=== PATIENT | male | born 1945 | race Caucasian/White ===

== ENCOUNTER 2019-09-05 05:18 | Inpatient (IN) ==
--- NOTE | 2019-08-01 10:09 | PAT Medication Instructions ---
Medication Instructions Date of Service August 01, 2019 Home Medications coenzyme Q10 [Co Q-10] 10 mg PO QAM fluticasone propionate 2 spray INTRANASAL QPM gabapentin 300 mg PO HS lisinopril 20 mg PO QAM metformin 500 mg PO BID multivitamin 1 tab PO QPM ascorbic acid (vitamin C) 500 mg PO QAM aspirin 81 mg PO HS azelastine 1 spray INTRANASAL QAM cholecalciferol (vitamin D3) [Vitamin D3] 1,000 unit PO QAM cyclobenzaprine 5 mg PO TID PRN doxazosin 2 mg PO HS gabapentin 200 mg PO QAM hydrocortisone 1 applic TOPICAL BID loratadine [Claritin] 10 mg PO QAM ASK your prescriber and surgeon aspirin 81 mg PO HS STOP taking 2 weeks before surgery (or as soon as possible if surgery is within 2 weeks) coenzyme Q10 [Co Q-10] 10 mg PO QAM STOP taking 24 hours before surgery hydrocortisone 1 applic TOPICAL BID DO NOT take the morning of surgery lisinopril 20 mg PO QAM metformin 500 mg PO BID ascorbic acid (vitamin C) 500 mg PO QAM cholecalciferol (vitamin D3) [Vitamin D3] 1,000 unit PO QAM cyclobenzaprine 5 mg PO TID PRN loratadine [Claritin] 10 mg PO QAM Take morning of surgery With a small sip of water, OTHERWISE NOTHING TO EAT OR DRINK AFTER MIDNIGHT: azelastine 1 spray INTRANASAL QAM gabapentin 200 mg PO QAM Take evening before surgery fluticasone propionate 2 spray INTRANASAL QPM gabapentin 300 mg PO HS metformin 500 mg PO BID multivitamin 1 tab PO QPM cyclobenzaprine 5 mg PO TID PRN (if needed) doxazosin 2 mg PO HS Other Notes If you have any questions please call us at [phone] or [phone] or [phone] or [phone]
--- NOTE | 2019-08-02 09:21 | Anesthesiology Consultation ---
Date of Service August 02, 2019 Assessment & Plan (1) Encounter for pre-operative examination: - PCP: 06/20/19: followup from [facility] ER visit for fall. No LOC but MRI brain ordered to ensure no acute findings. MRI Freddy 06/25/19 revealed no acute intracranial pathology. Global cerebral atrophy with scattered microvascular ischemic changes in the cerebral white matter, likely chronic. Patient subsequently had PCP visit: 07/21/19: Memory issue complaints- being scheduled to see neuro in the future for further evaluation. Otherwise "feeling overall better" since last visit. - Check BSG AM DOS Chart Review Chart Review: Acceptable Risk for Surgery and Patient seen in Pre Admission Testing Teaching & Discussion Pre-Anesthesia Teaching/Discussion Notes: Instructed NPO after midnight before surgery,except medications with 15 cc of water. Medication instructions provided according to the PAT guidelines. History Surgery Operation Date: 09/05/19 12:10 Proposed Procedures p Right Reverse Total Shoulder Arthroplasty - Freddy Marinelli, Height/Weight Height: 5 ft 8 in Weight: 99.9 kg Allergies Allergy/AdvReac Type Severity Reaction Status Date / Time latex Allergy Mild rash Verified 08/02/19 09:35 pollen extracts AdvReac Unknown seasonal Unverified 08/02/19 09:35 allergy symptoms Mcjeoln-Slv-Zyv Reductase AdvReac muscle pain Verified 08/02/19 09:35 Inhibitor Dust AdvReac Unknown seasonal Uncoded 08/02/19 09:35 allergy symptoms Medications Home Medications Medication Instructions Recorded Confirmed Last Taken coenzyme Q10 [Co Q-10] 10 mg PO QAM 06/15/19 08/02/19 Unknown fluticasone propionate 2 spray INTRANASAL QPM 06/15/19 08/02/19 Unknown gabapentin 300 mg PO HS 06/15/19 08/02/19 Unknown lisinopril 20 mg PO QAM 06/15/19 08/02/19 Unknown metformin 500 mg PO BID 06/15/19 08/02/19 Unknown multivitamin 1 tab PO QPM 06/15/19 08/02/19 Unknown ascorbic acid (vitamin C) 500 mg PO QAM 07/26/19 08/02/19 Unknown aspirin 81 mg PO HS 07/26/19 08/02/19 Unknown cholecalciferol (vitamin D3) 1,000 unit PO QAM 07/26/19 08/02/19 Unknown [Vitamin D3] cyclobenzaprine 5 mg PO TID PRN 07/26/19 08/02/19 Unknown doxazosin 2 mg PO HS 07/26/19 08/02/19 Unknown hydrocortisone 1 applic TOPICAL BID 07/26/19 08/02/19 Unknown loratadine [Claritin] 10 mg PO QAM 07/26/19 08/02/19 Unknown azelastine 137 mcg (0.1 %) nasal 2 sprays INTRANASAL QAM ml 08/02/19 08/02/19 Unknown spray aerosol gabapentin 100 mg capsule 100 mg PO QAM cap 08/02/19 08/02/19 Unknown Past Medical History Medical History BPH (benign prostatic hyperplasia) Chronic back pain Chronic kidney disease, stage 3 under surveillance (PCP monitoring) Degenerative disc disease Diabetes mellitus, type 2 NIDDM History of basal cell carcinoma History of squamous cell carcinoma Hypertension Obesity Osteoarthritis Sleep apnea CPAP Exercise / Class Metabolic Activity III < 4 Walking/Shop/Light housework Past Family History Family History Sister Family history of diabetes mellitus Mother Family history of diabetes mellitus Father Family history of esophageal cancer Other No family history of adverse response to anesthesia Past Surgical History Surgical History History of cataract surgery BL History of colonoscopy History of Mohs micrographic surgery for skin cancer X 2 History of tonsillectomy Past Anesthesia History No Hx of Anesthesia Complications and No Family Hx of Anesthesia Complications History of PONV No Hx of PONV and No Hx of Motion Sickness Social History Smoking Status: Never smoker Do You Dip or Chew Tobacco: No Hx Alcohol Use: Yes alcohol intake frequency: a few times a month Hx Substance Use: No substance use type: does not use Review of Systems Patient denies chest pain, shortness of breath, reflux, cough, wheezing, palpitations. Physical Exam Vital Signs VITALS BP 147/78 P 70 TEMP 98.3 SP02 98%RA RESP 16 PHYSICAL Full neck and c-spine range of motion. Full TMJ range of motion. TMD 3.5 finger breaths Mallampati Score 3 Dentition: upper/lower partials Lungs: clear throughout to auscultation Cardiac: regular rate and rhythm Spine: normal Carotid arteries: negative bruit Extremities: no edema Testing Laboratory Results 08/02/19 10:07 08/02/19 10:07 PT 10.8 Seconds (9.0-12.0) 08/02/19 10:07 INR 1.1 (0.9-1.1) 08/02/19 10:07 APTT 25.2 Seconds (21.0-31.0) 08/02/19 10:07 Hemoglobin A1c 6.0 % (4.5-5.6) H 08/02/19 10:07 Blood Type B Positive 08/02/19 10:07 Antibody Screen NEGATIVE 08/02/19 10:07 Electrocardiogram Date: 06/15/19 Findings: + NSR @ (74) Chest X-Ray Date: 06/15/19 Mild right hemidiaphragmatic elevation (scheduled for right shoulder surgery). Cardiomediastinal and hilar silhouettes are within normal limits. No pneumot horax, pleural effusion, focal airspace consolidation or overt pulmonary edema. Degenerative changes of the shoulders and spine. No acute process.
[2019-08-02 11:42] LABS: Basophils # (auto) 0.09 K/uL (0-0.2); Basophils % (auto) 1.5 %; Eosinophils # (auto) 0.36 K/uL (0-0.5); Eosinophils % (auto) 6.1 %; Hematocrit (blood only) 39.8 % (42-52); Hemoglobin 13.6 g/dL (14.0-18.0); Immature Granulocytes # (auto) 0.01 K/uL (0.00-0.02); Immature Granulocytes % (auto) 0.2 %; Lymphocytes % (auto) 27.3 %; Mean Corpuscular Hemoglobin 32.6 pg (25-34); Mean Corpuscular Hgb Conc 34.2 g/dL (32-36); Mean Corpuscular Volume 95.4 fL (80-100); Mean Platelet Volume 9.7 fL (7.4-10.4); Monocytes # (auto) 0.57 K/uL (0.11-0.59); Monocytes % (auto) 9.7 %; Neutrophils # (auto) 3.23 K/uL (1.4-6.5); Neutrophils % (auto) 55.2 %; Platelet Count 237 K/uL (130-400); RDW Standard Deviation 45.1 fL (36.4-46.3); Red Blood Count 4.17 M/uL (4.7-6.1); White Blood Count 5.86 K/uL (4.8-10.8)
[2019-08-02 11:51] LABS: BUN Creatinine Ratio 12.3 (10-20); Calcium 9.8 mg/dl (8.5-10.1); Creatinine Clr Calc Pharmacy 67.1 ml/min; Est GFR (African American) 76.5; Potassium 4.7 mmol/L (3.5-5.1)
[2019-08-02 11:53] LABS: INR 1.1 (0.9-1.1); Partial Thromboplastin Ratio 0.9; Partial Thromboplastin Time 25.2 Seconds (21.0-31.0); Prothrombin Time 10.8 Seconds (9.0-12.0)
[2019-08-02 12:28] LABS: Estimated Average Glucose 126 mg/dl
--- NOTE | 2019-09-01 08:45 | History & Physical Report ---
Date of Service September 01, 2019 Assessment & Plan (1) Rotator cuff arthropathy of right shoulder: We will proceed with a reverse right shoulder arthroplasty. Postoperatively he will be kept overnight in the hospital for postoperative medical management. He plans to use energy physical therapy upon discharge. Present on Admission?: Yes History of Present Illness Chief Complaint: Rotator cuff arthropathy of the right shoulder Primary Care Provider: Sara Nicole MD All is a pleasant 73-year-old male who fell hard onto his right shoulder about 3 months ago. He has been nonfunctional with his right shoulder. MRI and clinical examination were diagnostic for a massive rotator cuff tear. The tear involves the entire supraspinatus, infraspinatus, and subscapularis. We discussed arthroscopy versus reverse shoulder replacement in the office. I did a reverse shoulder replacement on his and she did very well with that. He was not interested in the recovery required for a rotator cuff repair. He elected to proceed with a reverse right shoulder arthroplasty. Allergies Allergy/AdvReac Type Severity Reaction Status Date / Time latex Allergy Mild rash Verified 08/02/19 09:35 pollen extracts AdvReac Unknown seasonal Unverified 08/02/19 09:35 allergy symptoms Xgnvelu-Zbg-Vaj Reductase AdvReac muscle pain Verified 08/02/19 09:35 Inhibitor Dust AdvReac Unknown seasonal Uncoded 08/02/19 09:35 allergy symptoms Home Medications Home Medications Medication Instructions Recorded Confirmed Type coenzyme Q10 [Co Q-10] 10 mg PO QAM 06/15/19 08/02/19 History fluticasone propionate 2 spray INTRANASAL QPM 06/15/19 08/02/19 History gabapentin 300 mg PO HS 06/15/19 08/02/19 History lisinopril 20 mg PO QAM 06/15/19 08/02/19 History metformin 500 mg PO BID 06/15/19 08/02/19 History multivitamin 1 tab PO QPM 06/15/19 08/02/19 History ascorbic acid (vitamin C) 500 mg PO QAM 07/26/19 08/02/19 History aspirin 81 mg PO HS 07/26/19 08/02/19 History cholecalciferol (vitamin D3) 1,000 unit PO QAM 07/26/19 08/02/19 History [Vitamin D3] cyclobenzaprine 5 mg PO TID PRN 07/26/19 08/02/19 History doxazosin 2 mg PO HS 07/26/19 08/02/19 History hydrocortisone 1 applic TOPICAL BID 07/26/19 08/02/19 History loratadine [Claritin] 10 mg PO QAM 07/26/19 08/02/19 History azelastine 137 mcg (0.1 %) nasal 2 sprays INTRANASAL QAM ml 08/02/19 08/02/19 History spray aerosol gabapentin 100 mg capsule 100 mg PO QAM cap 08/02/19 08/02/19 History Past Med/Surg History Medical History BPH (benign prostatic hyperplasia) Chronic back pain Chronic kidney disease, stage 3 under surveillance (PCP monitoring) Degenerative disc disease Diabetes mellitus, type 2 NIDDM History of basal cell carcinoma History of squamous cell carcinoma Hypertension Obesity Osteoarthritis Sleep apnea CPAP Surgical History History of cataract surgery BL History of colonoscopy History of Mohs micrographic surgery for skin cancer X 2 History of tonsillectomy Family History Sister Family history of diabetes mellitus Mother Family history of diabetes mellitus Father Family history of esophageal cancer Other No family history of adverse response to anesthesia Social History Preferred Language: Uzbek Communication Ability: Effective Snow Removal/Plowing Required: No Beliefs That Will Affect Care: None Current Living Situation: Spouse Feels Safe at Home: Yes Smoking Status: Never smoker Second Hand Exposure: No ; Hx Alcohol Use: Yes Hx Substance Use: No Review of Systems All systems reviewed & are unremarkable except as noted in HPI & below Physical Exam Constitutional: WD/WN, vitals as above Eyes: PERRL, conjunctivae normal, anicteric sclerae ENMT: external ear and nose normal, oropharynx normal Neck: trachea midline, no thyromegaly Respiratory: normal respiratory effort Cardiovascular: RRR, no murmur, no edema Gastrointestinal (Abdomen): normal bowel sounds, soft, nontender, no hepatosplenomegaly Musculoskeletal: Physical examination of the right shoulder reveals decreased range of motion and significant weakness. There is tenderness palpation along the anterior glenohumeral joint line. The right upper extremity is neurova scularly intact. Psychiatric: A+Ox3, euthymic affect Results & Data Diagnostic Findings Radiographs of the right shoulder show some signs of osteoarthritis with blunting of the greater tuberosity and some superior migration of the humeral head on the glenoid.
[2019-09-05] MEDS ORDERED: GABAPENTIN 300 MG CAP PO SCH ×2 (06:00→21:00)
[2019-09-05] MEDS ORDERED: TRANEXAMIC ACID 1,000 MG **IV Intra-op IV SCH (06:00)
[2019-09-05] MEDS ORDERED: LR 500ML BOLUS, THEN 15ML/HR IV SCH (06:00)
[2019-09-05] MEDS ORDERED: DEXAMETHASONE SOD PHOSPHATE 8 MG in SYRINGE 0 ML IV SCH (06:00)
[2019-09-05] MEDS ORDERED: FAMOTIDINE 20 MG TAB PO SCH (06:00)
[2019-09-05] MEDS ORDERED: LR 60ML/HR IV SCH (06:00)
[2019-09-05] MEDS ORDERED: ACETAMINOPHEN 500 MG TAB PO SCH (06:00)
[2019-09-05] MEDS ORDERED: ROPIVACAINE 0.5% HCL/PF 150 MG, BUPIVACAINE 0.5% MPF 30 ML, EPINEPHrine 30MG/30ML (OR U... INSTIL SCH (06:00)
[2019-09-05] MEDS ORDERED: CEFAZOLIN 2000MG 2,000 MG/15 ML SYR IV SCH (06:00)
[2019-09-05] MEDS ORDERED: TRANEXAMIC ACID 1,000 MG **IV Pre-op IV SCH (06:00)
[2019-09-05] MEDS ORDERED: BUPIVACAINE 0.5 % 5 MG/1 ML PF 10ML VIAL ONE (06:25)
--- NOTE | 2019-09-05 06:42 | History & Physical Bridge Note ---
Date of Service September 05, 2019 History & Physical Bridge Note I have examined the patient, reviewed the History & Physical and in the interval since the performance of the History & Physical I have noted the following changes of clinical significance: no changes noted
[2019-09-05] MEDS ORDERED: dexAMETHasone 4 MG TAB PO ONE (06:52)
[2019-09-05] MEDS ORDERED: PROPOFOL IV EMULSION 10 MG/ML 20 ML VIAL IV ONE (06:54)
[2019-09-05] MEDS ORDERED: fentaNYL citrate 100 MCG/2 ML VIAL ONE (06:54)
[2019-09-05] MEDS ORDERED: LIDOCAINE HCL 2% 2 ML VIAL/AMP(20MG/ML) INFIL ONE (06:54)
[2019-09-05] MEDS ORDERED: ROCURONIUM BROMIDE 10 MG/ML 5 ML VIAL ONE ×2 (06:54→08:14)
[2019-09-05] MEDS ORDERED: MIDAZOLAM HCL 1 MG/ML 2ML VIAL ONE (06:54)
[2019-09-05] MEDS ORDERED: ORTHO JOINT ANESTHETIC ONE (07:01)
[2019-09-05] MEDS ORDERED: fentaNYL citrate 100 MCG/2 ML VIAL IV PRN (07:41)
[2019-09-05] MEDS ORDERED: ePHEDrine sulfate 50 MG/ML AMP IV PRN (07:41)
[2019-09-05] MEDS ORDERED: ATROPINE SULFATE 0.1 MG/ML 10ML SYR IV PRN (07:41)
[2019-09-05] MEDS ORDERED: ONDANSETRON INJ 2 MG/ML 2 ML VIAL IV PRN ×2 (07:41→09:54)
[2019-09-05] MEDS ORDERED: PHENYLEPHRINE 100MCG/ML 5ML SYR ONE (08:13)
[2019-09-05] MEDS ORDERED: ePHEDrine sulfate 50 MG/ML AMP ONE (08:13)
[2019-09-05] MEDS ORDERED: ONDANSETRON INJ 2 MG/ML 2 ML VIAL ONE (08:13)
[2019-09-05] MEDS ORDERED: DEXAMETHASONE SOD INJ 4 MG/ML VIAL ONE (08:13)
[2019-09-05] MEDS ORDERED: GLYCOPYRROLATE 0.2 MG/ML VIAL ONE (08:37)
[2019-09-05] MEDS ORDERED: NEOSTIGMINE METHYLSULFATE 5 MG/5 ML SYR ONE (08:37)
--- NOTE | 2019-09-05 08:41 | Operative Report ---
PG Post Operative Report Pre & Post Diagnosis Operation Date: 09/05/19 07:15 Pre-Op Diagnosis: Rotator cuff arthropathy of the right shoulder Post-Op Diagnosis: Rotator cuff arthropathy of the right shoulder I identified the patient and participated in the time-out.: Yes Procedure Operation Date: 09/05/19 07:15 Actual Procedures p Right Reverse Total Shoulder Arthroplasty(Right) - Freddy Marinelli DO Surgeon Freddy Marinelli DO Senior Agricultural Assistant Freddy Monsalve PAC Estimated Blood Loss 250 Findings Consistent with Post-Op Diagnosis Specimens Right humeral head Complications none Disposition Disposition: Recovery Room Indications All is a pleasant 73-year-old male who fell hard sustaining a massive right rotator cuff tear. MRI and clinical examination showed parts of the rotator cuff are unrepairable. After failing extensive conservative treatment, he elected proceed with a reverse right shoulder arthroplasty. Description of Procedure Implants used: I used a [employer] Comprehensive reverse total shoulder arthroplasty system with a size 11 press fit mini humeral stem, a standard humeral tray and a standard humeral bearing, a 25 mm mini baseplate with a 6.5 mm central screw and superior and inferior locking screws, and a size 36 mm eccentric glenosphere. The patient arrived at [facility] for the above procedure. There were seen in the preoperative holding area and the operative extremity was identified and signed. They were given a preoperative antibiotic and an interscalene nerve block. They were taken back to the operating room, laid on table in supine position, and put under general anesthesia. They were then put into the beachchair position. The shoulder was then prepped and draped in sterile fashion. A timeout was done and the patient and the operative extremity was properly identified. A deltopectoral approach was used. Dissection was taken down through the fascia and the deltoid was retracted laterally and the conjoined tendon was retracted m edially. The anterior shoulder was exposed. The long head of the biceps tendon was tenodesed to the upper border of the pectoralis major. The subscapularis was then released off the lesser tuberosity with a centimeter of cuff tissue remaining. The inferior capsule was released and the humeral head was dislocated. A canal finding reamer was sent down the center of the humeral canal. Sequenti al reaming up to a size 11 reamer was done. Off that reamer, a proximal humeral resection guide was placed. The proximal humerus was resected at 135 of inclination and 25 of retroversion. Osteophytes were then removed and the glenoid was exposed. Time was spent doing a complete capsular and labral release. The glenoid guide was then placed in the inferior aspect of the glenoid. A 3.2 mm Steinmann pin was then placed into the glenoid vault at 10 of inclination. The glenoid baseplate was then reamed. The final size 25 mm mini baseplate was then impacted in the place. A 6.5 mm central screw was then placed followed by superior and inferior locking screws. A 36 mm eccentric glenoid sphere was then impacted into place. Surrounding soft tissues were then injected with 100 cc an orthopedic pain control cocktail. The proximal humerus was then exposed. Sequential broaching of the humerus up to a size 11 broach was done. Off that broach a standard humeral tray was trialed. The shoulder was then reduced, brought through a full range of motion and felt to be stable. The shoulder was then dislocated and the broach was removed. The final size 11 mini press-fit humeral stem was then impacted into place. A standard humeral bearing was then snapped onto a standard humeral tray and the ring-lock mechanism was engaged. The humeral tray was then impacted onto the humeral stem. The shoulder was once again reduced, brought through a full range of motion and felt to be stable. The subscapularis was then tenodesed back to the lesser tuberosity with transosseous FiberWire sutures and side to side sutures with the arm in 45 of external rotation. A dilute betadyne lavage was then done for 3 minutes. The joint was then irrigated with normal saline solution. Hemostasis was obtained. The skin was then closed with 2-0 Vicryl, 3-0V lock suture, and ramsey. A soft dressing and a regular arm sling was placed. The patient was then extubated and transferred to a hospital bed. They were taken to the postanesthesia care unit in stable condition. They tolerated the procedure well. I attest to the content of the Intraoperative Record and any orders documented therein. Any exceptions are noted below.
--- NOTE | 2019-09-05 09:34 | Anesthesiology Progress Note ---
Date of Service September 05, 2019 Anesthesia Post Procedure Vital Signs Vital Signs: Temp Pulse Pulse Resp BP BP Pulse Ox 09/05/19 09:25 72 16 128/54 L 97 09/05/19 09:15 74 16 119/49 L 96 09/05/19 09:05 79 16 115/55 L 96 09/05/19 08:58 36.2 C L 85 16 101/49 L 95 09/05/19 05:58 36.7 C 76 20 151/67 H 98 Pain Intensity Other: Pain Intensity: 4 Right Shoulder: Pain Intensity: 4 Transfer of Care Handoff Completed per policy Notes Mental Status: alert / awake / arousable and participated in evaluation Patient Amnestic to Procedure: Yes Nausea / Vomiting: adequately controlled Pain: adequately controlled Airway Patency, RR, SpO2: stable & adequate BP & HR: stable & adequate Hydration State: stable & adequate Anesthetic Complications: no major complications apparent and Pt Satisfied with anesthetic care
--- NOTE | 2019-09-05 09:36 | XRay Report ---
XR shoulder RT min 2V routine CLINICAL HISTORY: Post shoulder surgery postoperative evaluation COMPARISON: None. DISCUSSION: Anatomic alignment posttotal right shoulder arthroplasty. Could contact between prostheti c and underlying bone. Expected postoperative soft tissue change IMPRESSION: Anatomic alignment posttotal right shoulder arthroplasty. ACT 112: Negative or not required by law. The above report was generated using voice recognition software. It may contain grammatical, syntax or spelling errors. Electronically signed by: Cuba Hurtado M.D. 09/05/2019 9:35 AM
[2019-09-05] MEDS ORDERED: NALOXONE HCL 0.4 MG/1 ML VIAL/CARP IV PRN (09:54)
[2019-09-05] MEDS ORDERED: bisacodyL 10 MG SUPP PR PRN (09:54)
[2019-09-05] MEDS ORDERED: METOCLOPRAMIDE HCL INJ 5 MG/ML 2 ML VIAL IV PRN (09:54)
[2019-09-05] MEDS ORDERED: HYDROmorphone INJ 0.5 MG/0.5 ML SYR IV PRN (09:54)
[2019-09-05] MEDS ORDERED: MAGNESIUM HYDROXIDE SUSP 30 ML UDC PO PRN (09:54)
[2019-09-05] MEDS ORDERED: OXYCODONE HCL IR 5 MG TAB (IMMEDIATE RELEASE) PO PRN (09:54)
[2019-09-05] MEDS: SODIUM CHLORIDE 0.9% 1000ML 1,000 ML IV SCH ×2 (10:24→20:18)
--- NOTE | 2019-09-05 10:26 | Pharmacy Report ---
Glycemic Control Consultation - Date of Service September 05, 2019 - Scope Scope: Glycemic Pharmacist consulted by Freddy Monsalve PA-C on 09/05/19 for glycemic control and to write orders per [facility] inpatient glycemic control protocol - Objective Weight: 104.598 kg Accuchecks BSG (last 24hrs): 09/05/19 09/05/19 05:44 09:14 POC Glucose 118 H 164 H HbA1c: Hemoglobin A1c 6.0 % (4.5-5.6) H 08/02/19 10:07 - Recent Pertinent Medications Outpatient Anti-diabetic Regimen: * metformin 500 PO BID Risk Factors for Insulin Resistance: * Steroids: dexamethasone 8 mg PO preop + dexamethasone 4 mg IV intraoperative + dexamethasone 4 mg topically intraoperatively * Recent Surgery: POD 0 for shoulder surgery * Diet:T2DM - Assessment & Plan Assessment & Plan: ASSESSMENT: * Mr Son is a 73 y/o M with a PMH of well controlled T2DM on 1 oral medication who presents for shoulder surgery. He received significant steroids. He will receive steroids tomorrow morning as well. * Since patient received dexamethasone, will give 0.4 units/kg of Lantus now (this also aligns with a full weight-based stress of 2 Lantus). Utilize weight-based stress of 3 Novolog ... will not order additional Lantus this evening since want a bolus heavy regimen. * Pt is maintained on oral antidiabetic agents as an outpatient * Oral agents are not recommended for inpatient use d/t drug interactions, changing PO intake, and difficulty titrating for acute hyper/hypoglycemia. ADA recommends re-initiating outpatient oral agents 1-2 days prior to discharge if/when appropriate if they were held on admission. * Will hold oral agents for admission and utilize SQ basal bolus insulin regimen which is the recommended regimen for inpatient glycemic control. * Will initiate weight based insulin dosing for insulin audelia patient and titrate based on BSG trends. PLAN FOR INPATIENT GLYCEMIC CONTROL: * Holding outpatient oral diabetes medications- plan to restart on POD 2. * Basal insulin * Lantus 35 units SQ x 1 * Bolus insulin * NovoLog per scale ACHS or Q6hrs while NPO * Goal Range: Low 110 mg/dL - High 140 mg/dL * Correction Factor: 15 mg/dL/unit * Nutritional / Prandial insulin per carb ratio of 1 unit per 5 grams CHO consumed Recommendations for Home Regimen * Patient's HbA1C well controlled recommend continuing home regimen. Thank you.
[2019-09-05] MEDS ORDERED: PHARMACY GLYCEMIC MGMT CONSULT PRN (10:37)
[2019-09-05] MEDS ORDERED: INSULIN GLARGINE SOLOSTAR 100 UNITS/ML 3 ML PEN SC ONE (11:00)
[2019-09-05] MEDS: HYDROCORTISONE 2.5% CR 30 GM TUBE EXT SCH ×2 (11:25→20:24)
[2019-09-05] MEDS: MULTIVITAMIN TAB PO SCH (11:25)
[2019-09-05] MEDS: GABAPENTIN 100 MG CAP PO SCH (11:26)
[2019-09-05] MEDS: DOCUSATE SODIUM 100 MG CAP PO SCH ×2 (11:28→20:25)
[2019-09-05] MEDS: LORATADINE 10 MG TAB PO SCH (11:28)
[2019-09-05] MEDS: lisinopriL 20 MG TAB PO SCH (11:28)
[2019-09-05] MEDS: INSULIN ASPART 100 UNITS/ML 3 ML PEN SC SCH ×3 (11:30→21:26)
[2019-09-05] MEDS: KETOROLAC TROMETHAMINE 15 MG/ML VIAL IV SCH ×3 (11:31→23:56)
--- NOTE | 2019-09-05 11:50 | Consultation ---
Date of Consultation September 05, 2019 Assessment & Plan (1) Status post reverse total arthroplasty of right shoulder: Post op day# 0 S/P Right reverse total shoulder arthroplasty by Dr Marinelli Post op doing well -pain management per ortho -wound management per ortho -PT/OT as appropriate -DVT prophylaxis per ortho -incentive spirometry -monitor H&H for acute blood loss anemia; Pre-op Hgb: 13.6 (2) Diabetes mellitus, type 2: A1c: 6.0 on 08/02/19 -Hold metformin -Glycemic Pharmacy on board, appreciate recommendations (3) Hypertension: -Continue lisinopril (4) Chronic kidney disease, stage 3: Baseline Cr: ~1.1 -Monitor renal functions -Avoid nephrotoxic agents when possible (5) Sleep apnea: -CPAP HS (6) BPH (benign prostatic hyperplasia): -Continue doxazosin (7) Dyslipidemia: -Intolerant to statins DVT Prophylaxis: -SCDs per ortho Follows with Dr Nicole for routine care Pt was seen and care coordinated with Dr Duenas. See addendum Thank you for this consultation. We will follow the patient with you during their hospital stay. You can reach a member of the [facility] Hospitalist Team 30/03 via pager @ [phone]. 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 Post op pt reports doing well. Denies any current pain. Reports some paresthesias to right arm and fingers. Has not yet urinated after procedure. Reports ate toast and drinking water without nausea or vomiting. Reports throat feels a little sore. Denies choking or difficulty swallowing. Denies chills, diaphoresis, diarrhea, constipation, ROD, dizziness, syncope, vision changes, neck pain, CP, SOB, orthopnea, palpitations, cough, rhinorrhea, abdominal pain, extremity edema, rashes, urinary symptoms. Allergies Allergy/AdvReac Type Severity Reaction Status Date / Time latex Allergy Mild rash Verified 09/05/19 06:15 Kzjlwia-Xgf-Bmj Reductase AdvReac Intermediate muscle pain Verified 09/05/19 06:15 Inhibitor pollen extracts AdvReac Mild seasonal Verified 09/05/19 06:15 allergy symptoms Dust AdvReac Mild seasonal Uncoded 09/05/19 06:15 allergy symptoms Home Medications Home Medications Medication Instructions Recorded Confirmed Type coenzyme Q10 [Co Q-10] 10 mg PO QAM 06/15/19 09/05/19 History fluticasone propionate 2 spray INTRANASAL QPM 06/15/19 09/05/19 History gabapentin 300 mg PO HS 06/15/19 09/05/19 History lisinopril 20 mg PO QAM 06/15/19 09/05/19 History metformin 500 mg PO BID 06/15/19 09/05/19 History multivitamin 1 tab PO QPM 06/15/19 09/05/19 History ascorbic acid (vitamin C) 500 mg PO QAM 07/26/19 09/05/19 History aspirin 81 mg PO HS 07/26/19 09/05/19 History cholecalciferol (vitamin D3) 1,000 unit PO QAM 07/26/19 09/05/19 History [Vitamin D3] cyclobenzaprine 5 mg PO TID PRN 07/26/19 09/05/19 History doxazosin 2 mg PO HS 07/26/19 09/05/19 History hydrocortisone 1 applic TOPICAL BID 07/26/19 09/05/19 History loratadine [Claritin] 10 mg PO QAM 07/26/19 09/05/19 History azelastine 137 mcg (0.1 %) nasal 2 sprays INTRANASAL QAM ml 08/02/19 09/05/19 History spray aerosol gabapentin 100 mg capsule 100 mg PO QAM cap 08/02/19 09/05/19 History Tylenol Extra Strength 2 tab PO TID PRN 09/05/19 09/05/19 History Patient History Medical History (Updated 09/05/19 @ 11:54 by Julia Osuna PA-C) BPH (benign prostatic hyperplasia) Chronic back pain Chronic kidney disease, stage 3 under surveillance (PCP monitoring) Degenerative disc disease Diabetes mellitus, type 2 NIDDM Dyslipidemia History of basal cell carcinoma History of squamous cell carcinoma Hypertension Obesity Osteoarthritis Sleep apnea CPAP Surgical History (Updated 09/05/19 @ 11:54 by Julia Osuna PA-C) History of cataract surgery BL History of colonoscopy History of Mohs micrographic surgery for skin cancer X 2 History of tonsillectomy Family History Sister Family history of diabetes mellitus Mother Family history of diabetes mellitus Father Family history of esophageal cancer Other No family history of adverse response to anesthesia Social History Preferred Language: Mauritian Communication Ability: Effective Budget Report Clerk Required: No Beliefs That Will Affect Care: None Current Living Situation: Spouse Other Information That Helps Us Care for You: No Feels Safe at Home: Yes Safety Concerns: Feels Safe At This Time Smoking Status: Never smoker Do You Dip or Chew Tobacco: No ; Second Hand Exposure: No ; Hx Alcohol Use: Yes Hx Substance Use: No Review of Systems Review of Systems: All systems reviewed & are unremarkable except as noted in HPI & below Physical Exam Physical Exam: General: no distress, obese Head: normocephalic, atraumatic Eyes: PERRL, EOM's intact, conjunctiva non-injected, anicteric ENT: normal inspection external ears, nose, mucous membranes moist Neck: supple, trachea midline Lungs: clear, no respiratory distress, no wheezing/rhonchi/rales CV: RRR, no murmur, no pretibial edema Abd: normal BS, soft, non-tender Ext: RUE: arm in sling, able to flex and extend fingers, distal pulses intact. BLE without edema, distal pulses intact, no calf tenderness Neuro: A&O x 3, no focal deficits noted, normal affect Skin: warm, dry Results & Data Vital Signs (Past 12 Hours) Vital Signs Temp Pulse Pulse Resp BP BP Pulse Ox 09/05/19 11:18 36.3 C L 72 18 126/77 100 09/05/19 10:18 36.3 C L 70 18 129/76 95 09/05/19 09:45 36.5 C 75 18 130/73 95 09/05/19 09:35 69 16 121/58 L 98 09/05/19 09:25 72 16 128/54 L 97 09/05/19 09:15 74 16 119/49 L 96 09/05/19 09:05 79 16 115/55 L 96 09/05/19 08:58 36.2 C L 85 16 101/49 L 95 09/05/19 05:58 36.7 C 76 20 151/67 H 98
[2019-09-05] MEDS: ACETAMINOPHEN 500 MG TAB PO SCH ×2 (13:27→21:25)
[2019-09-05] MEDS ORDERED: INSULIN ASPART 100 UNITS/ML 3 ML PEN SC SCH (13:30)
[2019-09-05] MEDS: ASTELIN - ORDER AWAITING ACTION SCH ×2 (15:50→23:57)
[2019-09-05] MEDS: CEFAZOLIN 2000MG 2,000 MG/15 ML SYR IV SCH ×2 (15:52→23:56)
[2019-09-05] MEDS: FLUTICASONE PROPIONATE NA SPR 16 GM BTL SCH (20:26)
[2019-09-05] MEDS ORDERED: ASPIRIN 81 MG ECTAB PO SCH (21:00)
[2019-09-05] MEDS ORDERED: DOXAZosin MESYLATE TAB 2 MG TAB PO SCH (21:00)
[2019-09-05] MEDS ORDERED: SENNA 8.6 MG TAB PO SCH (21:00)
[2019-09-06] MEDS ORDERED: INSULIN ASPART 100 UNITS/ML 3 ML PEN SC SCH (02:00)
[2019-09-06 05:08] LABS: Hematocrit (blood only) 33.7 % (42-52); Hemoglobin 11.8 g/dL (14.0-18.0); Immature Granulocytes # (auto) 0.05 K/uL (0.00-0.02); Immature Granulocytes % (auto) 0.3 %; Lymphocytes # (auto) 1.03 K/uL (1.2-3.4); Lymphocytes % (auto) 6.7 %; Mean Corpuscular Hemoglobin 32.6 pg (25-34); Mean Corpuscular Volume 93.1 fL (80-100); Mean Platelet Volume 9.4 fL (7.4-10.4); Monocytes # (auto) 1.54 K/uL (0.11-0.59); Neutrophils # (auto) 12.84 K/uL (1.4-6.5); Platelet Count 174 K/uL (130-400); RDW Coefficient of Variation 12.8 % (11.5-14.5); RDW Standard Deviation 43.6 fL (36.4-46.3); Red Blood Count 3.62 M/uL (4.7-6.1); White Blood Count 15.46 K/uL (4.8-10.8)
[2019-09-06 05:34] LABS: BUN Creatinine Ratio 18.5 (10-20); Calcium 8.5 mg/dl (8.5-10.1); Creatinine Clr Calc Pharmacy 63.4 ml/min; Est GFR (African American) 69.5; Potassium 4.9 mmol/L (3.5-5.1)
[2019-09-06] MEDS: ACETAMINOPHEN 500 MG TAB PO SCH (05:42)
[2019-09-06] MEDS: KETOROLAC TROMETHAMINE 15 MG/ML VIAL IV SCH (05:42)
--- NOTE | 2019-09-06 06:02 | Orthopedic Progress Note ---
Date of Service September 06, 2019 Assessment & Plan (1) History of reverse total replacement of right shoulder joint: Overall he is doing very well. He will be seen by physical therapy this morning for ambulation and range of motion exercises. He can be discharged home later today. He will follow-up with orthopedics in 2 weeks. Present on Admission?: Yes Subjective All was seen and examined at bedside this morning. Overall is doing very well. Is not having pain in the right shoulder. He was able to get some sleep last night. He has no complaints. Physical Exam Musculoskeletal: Physical examination of the right shoulder, the dressing is clean and dry. He is wearing a sling as instructed. His radial, median, and ulnar nerves are checked and intact his wrist. His axillary nerve was not checked. He still some numbness in his thumb. Results & Data Vital Signs (Past 12 Hours) Vital Signs Temp Pulse Resp BP Pulse Ox 09/06/19 02:59 36.5 C 65 16 143/82 H 97 09/05/19 23:22 36.7 C 64 16 149/81 H 97 09/05/19 20:12 36.5 C 66 16 147/76 H 100 Laboratory Results H & H 08/02/19 09/06/19 Range/Units 10:07 04:38 Hgb 13.6 L 11.8 L (14.0-18.0) g/dL Hct 39.8 L 33.7 L (42-52) % Coagulation 08/02/19 Range/Units 10:07 INR 1.1 (0.9-1.1) Diagnostic Findings Postoperative x-rays of the right shoulder show the prosthesis to be in anatomic alignment without any evidence of fracture, dislocation, or loosening. PG Care Time/CCT Total # of Minutes Spent Total Time Spent with Patient: Total time spent is greater than 50% in coordination of care (as documented) at patient's floor/unit and/or counseling patient:
--- NOTE | 2019-09-06 06:06 | Discharge Summary ---
Date of Service September 06, 2019 Admission HPI Per Admitting Provider All is a pleasant 73-year-old male who fell hard onto his right shoulder about 3 months ago. He has been nonfunctional with his right shoulder. MRI and clinical examination were diagnostic for a massive rotator cuff tear. The tear involves the entire supraspinatus, infraspinatus, and subscapularis. We discussed arthroscopy versus reverse shoulder replacement in the office. I did a reverse shoulder replacement on his and she did very well with that. He was not interested in the recovery required for a rotator cuff repair. He elected to proceed with a reverse right shoulder arthroplasty. Principal Diagnosis Right reverse shoulder arthroplasty Discharge Data Allergies Allergy/AdvReac Type Severity Reaction Status Date / Time latex Allergy Mild rash Verified 09/05/19 06:15 Oeaakxp-Ngs-Ioa Reductase AdvReac Intermediate muscle pain Verified 09/05/19 06:15 Inhibitor pollen extracts AdvReac Mild seasonal Verified 09/05/19 06:15 allergy symptoms Dust AdvReac Mild seasonal Uncoded 09/05/19 06:15 allergy symptoms Consultations 09/05/19 09:54 Consult Case Management - Discharge Planning Routine Procedures Performed Operation Date: 09/05/19 07:15 Actual Procedures p Right Reverse Total Shoulder Arthroplasty(Right) - Freddy Marinelli DO Ordered Studies 09/05/19 05:00 US - OR guided needle placemen Routine Hospital Course (1) History of reverse total replacement of right shoulder joint: On September 05, 2019 All arrived at [facility] and underwent a right reverse shoulder arthroplasty without complication. He had a general anesthetic and a right interscalene nerve block. Postoperatively he was placed in a sling and discharged to general orthopedic floors. His hospital course was uneventful. On postop day #1 his H&H was stable and his pain was well controlled. He was able to participate well with physical therapy doing ambulation and range of motion exercises. He was then discharged home. He will follow-up with orthopedics in 2 weeks. Total Time Total Time Spent Total Time Spent (In Minutes): 20 Discharge Plan Discharge Items Reason For Visit: Right Shoulder Degenerative Joint Disease Discharge Diagnosis: Right reverse shoulder arthroplasty Activity: As commented below Non-emergency contact: Surgeon Call non-emergency contact if: your wound has increased redness and your wound has increased drainage Follow-up/Referrals: Sara Nicole MD [Primary Care Provider] - Diet: Carb Consistent or DM2 Addtl Attending Provider Instructions: Activity and Therapy Recommendations: * If you are using [facility] then therapy will be provided at your home until they feel you have accomplished all of your goals. * If you are using [facility] then Physical Therapy will be provided until they feel you are ready to start Outpatient Physical Therapy. * If you are not using home therapy then Outpatient Physical Therapy should start about 3-5 days from your day of surgery. Therapy will last about 8-12 weeks * Wear your sling for 3 weeks, unless otherwise instructed. You may remove your sling to shower and to dress, but otherwise, you should be in your sling at all times, including while sleeping * The shoulder replacement is very stable and you can use your hand while in the sling * You were shown a series of exercises in the hospital. Do these exercises daily including the exercises you were shown in physical therapy. Medications: * Narcotic You will likely be sent home from the hospital with a prescription for the narcotic pain medication that worked best throughout your stay. * Other medications may be prescribed for specific circumstances. If you have any questions, please call the office at . * Resume previous home medications unless otherwise instructed Dressing Care: Leave the plastic dressing in place for 5 days. After 5 days you may remove the plastic dressing. If the incision is not draining then you may leave the ramsey open to air. If there is a little bit of drainage or if the ramsey are getting stuck on your clothing then cover the incision with a dry dressing. The ramsey will be removed at your 2 week follow-up appointment. Showering: You may shower with the plastic dressing in place. Let the shower spray hit the other shoulder. You can pat the plastic dry. If the dressing becomes wet underneath the plastic then simply remove the dressing. Keep the incision dry until you are 5 days out from the day of surgery. At that time you can shower with the ramsey exposed. Let the soapy shower water run over the ramsey and pat them dry. Do not scrub or soak the incision. Things To Watch For: * Drainage from the incision site that occurs more than one week after your surgery. * Increased redness at the incision site. * Fever above 102 degrees Fahrenheit. * Unusual chest pain or shortness of breath. * Call [facility] at with any of the above problems Follow-Up Visit: Follow-up with Dr. Marinelli 2-3 weeks after your day of surgery. An appointment was probably scheduled when you signed-up for surgery in the office. If you have any questions call Office Instructions: More detailed instructions as well as Frequently Asked Questions were provided in a folder by our office when you signed-up for surgery. Please review these instructions when you get home. If you have any further questions or concerns, please feel free to call the office at [phone] Pending Studies at Discharge: No Stand-Alone Forms: My [facility], Smoking Cessation Medications and DC Order Prescriptions: New oxycodone 5 mg Tablet 5 - 10 mg PO Q4H PRN (Reason: pain) Qty: 30 RF: 0 Continued multivitamin Tablet 1 tab PO QPM RF: 0 lisinopril 20 mg tablet 20 mg PO QAM RF: 0 coenzyme Q10 [Co Q-10] 10 mg Capsule 10 mg PO QAM RF: 0 gabapentin 300 mg capsule 300 mg PO HS RF: 0 fluticasone propionate 50 mcg/actuation spray,suspension 2 spray intranasal QPM RF: 0 metformin 500 mg tablet extended release 24 hr 500 mg PO BID RF: 0 doxazosin 1 mg Tablet 2 mg PO HS RF: 0 aspirin 81 mg Tablet,Delayed Release (Dr/Ec) 81 mg PO HS RF: 0 ascorbic acid (vitamin C) 500 mg Tablet 500 mg PO QAM RF: 0 hydrocortisone 2.5 % Cream 1 applic TOPICAL BID RF: 0 loratadine [Claritin] 10 mg Tablet 10 mg PO QAM RF: 0 cholecalciferol (vitamin D3) [Vitamin D3] 1,000 unit Capsule 1,000 unit PO QAM RF: 0 cyclobenzaprine 5 mg Tablet 5 mg PO TID PRN (Reason: Muscle Spasm) RF: 0 gabapentin 100 mg capsule 100 mg PO QAM RF: 0 azelastine 137 mcg (0.1 %) aerosol,spray 2 sprays INTRANASAL QAM RF: 0 Tylenol Extra Strength 500 mg 2 tab PO TID PRN (Reason: Pain) RF: 0 Admission Data Admit Date/Time: 09/05/19 08:58 Attending Provider: Freddy Marinelli Admit Provider: Freddy Marinelli Primary Care Provider: Sara Nicole
[2019-09-06] MEDS ORDERED: INSULIN GLARGINE SOLOSTAR 100 UNITS/ML 3 ML PEN SC SCH (08:00)
[2019-09-06] MEDS ORDERED: dexAMETHasone 4 MG TAB PO SCH (08:00)
--- NOTE | 2019-09-06 08:03 | Anesthesiology Progress Note ---
Date of Service September 06, 2019 Anesthesia Post Procedure Vital Signs Vital Signs: Temp Pulse Pulse Resp BP Pulse Ox 09/06/19 07:38 36.4 C L 62 16 134/79 94 09/06/19 02:59 36.5 C 65 16 143/82 H 97 09/05/19 23:22 36.7 C 64 16 149/81 H 97 09/05/19 20:12 36.5 C 66 16 147/76 H 100 09/05/19 14:58 36.4 C L 69 16 127/68 94 09/05/19 12:45 36.4 C L 85 16 156/72 H 98 09/05/19 11:45 36.3 C L 74 18 152/83 H 99 09/05/19 11:18 36.3 C L 72 18 126/77 100 09/05/19 10:18 36.3 C L 70 18 129/76 95 09/05/19 09:45 36.5 C 75 18 130/73 95 09/05/19 09:35 69 16 121/58 L 98 09/05/19 09:25 72 16 128/54 L 97 09/05/19 09:15 74 16 119/49 L 96 09/05/19 09:05 79 16 115/55 L 96 09/05/19 08:58 36.2 C L 85 16 101/49 L 95 Pain Intensity Other: Pain Intensity: 0 Right Shoulder: Pain Intensity: 0 Notes Mental Status: alert / awake / arousable and participated in evaluation Patient Amnestic to Procedure: Yes Nausea / Vomiting: adequately controlled Pain: adequately controlled Airway Patency, RR, SpO2: stable & adequate BP & HR: stable & adequate Hydration State: stable & adequate Anesthetic Complications: no major complications apparent and Pt Satisfied with anesthetic care
[2019-09-06] MEDS: INSULIN ASPART 100 UNITS/ML 3 ML PEN SC SCH (09:14)
[2019-09-06] MEDS: lisinopriL 20 MG TAB PO SCH (09:16)
[2019-09-06] MEDS: MULTIVITAMIN TAB PO SCH (09:16)
[2019-09-06] MEDS: GABAPENTIN 100 MG CAP PO SCH (09:17)
[2019-09-06] MEDS: DOCUSATE SODIUM 100 MG CAP PO SCH (09:17)
[2019-09-06] MEDS: LORATADINE 10 MG TAB PO SCH (09:17)
[2019-09-06] MEDS: HYDROCORTISONE 2.5% CR 30 GM TUBE EXT SCH (09:18)
[2019-09-06] MEDS: ASTELIN - ORDER AWAITING ACTION SCH (09:20)
[2019-09-06] MEDS: FLUTICASONE PROPIONATE NA SPR 16 GM BTL SCH (09:23)
== END 2019-09-06 11:33 | disposition home health service (06) | DRG 483 ==
LOC: ASU 05:18 → 3E 08:58